=== PATIENT | female | born 1955 | race Hispanic/Latino ===

== ENCOUNTER 2018-05-22 18:42 | Emergency (ER) | payer BC ==
[2018-05-22 18:42] VITALS: BMI 40.3
[2018-05-22 18:54] VITALS: RESP 18; TEMP 98.7
--- NOTE | 2018-05-22 19:16 | ED PDOC ---
Arrival/HPI - General Chief Complaint: Lower Extremity Problem/Injury Time Seen by Provider: 05/22/18 19:08 Historian: Patient - History of Present Illness Narrative History of Present Illness (Text): 05/22/18 19:11 62yo morbidly obese female with pmhx of hypertension, Diabetes, OA of b/l knees who present with complaint of left knee pain s/p trauma earlier. states she tripped over a carpet earlier, and hit the knee on the floor. She states that she had no pain s/p the fall, but it became increasingly swollen and painful after working and kneeling on the knee at work. States she did not take any pain medication. Denies hitting her head anywhere. Denies any other complaint. Past Medical History - Provider Review Nursing Documentation Reviewed: Yes - Infectious Disease Hx of Infectious Diseases: None - Cardiac Hx Hypertension: Yes Hx Pacemaker: No - Neurological Hx Paralysis: No - Endocrine/Metabolic Hx Diabetes Mellitus Type 2: Yes - Hematological/Oncological Hx Blood Transfusions: No Hx Blood Transfusion Reaction: No - Musculoskeletal/Rheumatological Hx Musculoskeletal Disorders: Yes (SEVERE OSTEOARTHRITIS KNEES) - Gastrointestinal Hx Gastrointestinal Ulcer: Yes - Psychiatric Hx Emotional Abuse: No Hx Physical Abuse: No Hx Substance Use: No - Anesthesia Hx Anesthesia Reactions: Yes (AFTER D&C NOTED VERY HIGH BLOOD SUGAR) Hx Malignant Hyperthermia: No - Suicidal Assessment Feels Threatened In Home Enviroment: No Family/Social History - Physician Review Nursing Documentation Reviewed: Yes Family/Social History: Unknown Family HX Smoking Status: Former Smoker Hx Alcohol Use: Yes (1 GLASS OF RED WINE EVERY OTHER DAY) Hx Substance Use: No Hx Substance Use Treatment: No Allergies/Home Meds Allergies/Adverse Reactions: Allergies tetracycline Allergy (Severe, Verified 02/19/16 09:37) SHORTNESS OF BREATH Home Medications: Home Meds Medication Instructions Recorded Confirmed Atorvastatin [Lipitor] 20 mg PO QPM 06/02/13 05/22/18 Losartan [Cozaar] 100 mg PO QAM 06/02/13 05/22/18 Aspirin [Ecotrin] 81 mg PO DAILY 02/19/16 05/22/18 Carvedilol Phosphate [Coreg Cr] 20 mg PO QAM 02/19/16 05/22/18 Ergocalciferol (Vitamin D2) 50,000 iu PO SUN 02/19/16 05/22/18 [Vitamin D] Glimepiride 4 mg PO QPM 02/19/16 05/22/18 Linagliptin [Tradjenta] 5 mg PO QAM 02/19/16 05/22/18 Metformin HCl [Glumetza] 1,000 mg PO BID 02/19/16 05/22/18 Trandolapril/Verapamil HCl [Tarka 1 tab PO QAM 02/19/16 05/22/18 2 mg-180 mg] Naltrexone HCl/Bupropion HCl 1 tab PO DAILY 05/22/18 05/22/18 [Contrave ER 8-90 mg Tablet] Ranitidine HCl [Zantac] 1 tab PO BID 05/22/18 05/22/18 Review of Systems - Physician Review All systems were reviewed & negative as marked: Yes - Review of Systems Constitutional: Normal Eyes: Normal ENT: Normal Respiratory: Normal Cardiovascular: Normal Gastrointestinal: Normal Genitourinary Female: Normal Musculoskeletal: Arthralgias (Left knee) Skin: Normal Neurological: Normal Endocrine: Normal Hemo/Lymphatic: Normal Psychiatric: Normal Physical Exam Vital Signs Reviewed: Yes Vital Signs Temp Pulse Resp BP Pulse Ox 05/22/18 20:15 82 18 143/76 98 05/22/18 18:54 98.7 F 70 18 155/77 H 97 Temperature: Afebrile Blood Pressure: Normal Pulse: Regular Respiratory Rate: Normal Appearance: Positive for: Well-Appearing, Non-Toxic, Comfortable Pain Distress: None Mental Status: Positive for: Alert and Oriented X 3 - Systems Exam Head: Present: Atraumatic, Normocephalic Pupils: Present: PERRL Extroacular Muscles: Present: EOMI Conjunctiva: Present: Normal Mouth: Present: Moist Mucous Membranes Neck: Present: Normal Range of Motion Respiratory/Chest: Present: Clear to Auscultation, Good Air Exchange. No: Respiratory Distress, Accessory Muscle Use Cardiovascular: Present: Regular Rate and Rhythm, Normal S1, S2. No: Murmurs Abdomen: No: Tenderness, Distention, Peritoneal Signs Back: Present: Normal Inspection Upper Extremity: Present: Normal Inspection. No: Cyanosis, Edema Lower Extremity: Present: NORMAL PULSES, Tenderness (LEft knee), Swelling (Left knee), Neurovascularly Intact. No: Edema, Normal ROM (Limited on flexion secondary to pain) Neurological: Present: GCS=15, CN II-XII Intact, Speech Normal Skin: Present: Warm, Dry, Normal Color. No: Rashes Psychiatric: Present: Alert, Oriented x 3, Normal Insight, Normal Concentration Medical Decision Making ED Course and Treatment: 05/23/18 00:54 PT was noted to ambulate in ED. Her pain was controlled in ED. Left knee xray - DJD. No acute fracture Result was DW the pt. GT wrap was applied. Pt has a cane and was advised to RICE knee. Referred to ortho. - RAD Interpretation Radiology Orders: 05/22/18 19:08 KNEE WITH PATELLA LEFT 3 VIEW [RAD] Stat - Medication Orders Current Medication Orders: Discontinued Medications Ketorolac Tromethamine (Toradol) 60 mg IM STAT STA Stop: 05/22/18 19:11 Last Admin: 05/22/18 19:28 Dose: 60 mg MAR Pain Assessment Document 05/22/18 19:28 EQ (Rec: 05/22/18 19:28 EQ [facility] [id number] Pain Reassessment Is this a pain reassessment? No Sleep Is patient sleeping during reassessment? No Presence of Pain Presence of Pain Yes IM Administration Charges Document 05/22/18 19:28 EQ (Rec: 05/22/18 19:28 EQ [facility] [email or web address]) Charges for Administration # of IM Administrations 1 Disposition/Present on Arrival - Present on Arrival Any Indicators Present on Arrival: No History of DVT/PE: No History of Uncontrolled Diabetes: No Urinary Catheter: No History of Decub. Ulcer: No History Surgical Site Infection Following: None - Disposition Have Diagnosis and Disposition been Completed?: Yes Diagnosis: Knee sprain Disposition: HOME/ ROUTINE Disposition Time: 20:35 Patient Plan: Discharge Condition: STABLE Discharge Instructions (ExitCare): Knee Sprain (DC) Additional Instructions: Rest, ice , compress and elevate knee Follow up with your doctor/orthopedist Return to ED for any new or worsening symptoms Prescriptions: Naproxen [Naprosyn] 500 mg PO BID #20 tab Referrals: Jeison Patel MD [Primary Care Provider] - Follow up with primary Reinaldo Franklin DO [Staff Provider] - Follow up with primary Forms: [employer] (Citizen Of [place])
[2018-05-22 21:44] VITALS: BP 143/76; PULSE 82; O2SAT 98
--- NOTE | 2018-05-23 08:18 | RAD ---
Date of service: 05/22/2018 PROCEDURE: Left Knee Radiographs. HISTORY: Pain. COMPARISON: None. FINDINGS: BONES: Normal. No fracture. JOINTS: Mild joint space narrowing and osteophyte formation in all 3 compartments. JOINT EFFUSION: None. OTHER FINDINGS: None. IMPRESSION: Mild degenerative changes. No acute findings
== END 2018-05-22 20:15 | disposition home or self-care (01) ==
LOC: ED 18:42
DX: S83.92XA Sprain of unspecified site of left knee, initial encounter (principal); W01.0XXA Fall on same level from slipping, tripping and stumbling without subsequent striking against object, initial encounter; E11.9 Type 2 diabetes mellitus without complications; I10 Essential (primary) hypertension; E66.01 Morbid (severe) obesity due to excess calories; M17.0 Bilateral primary osteoarthritis of knee; Z87.891 Personal history of nicotine dependence
CPT/HCPCS: 73562; 96372; 99283; J1885